=== PATIENT | female | born 1955 | race Hispanic/Latino ===

== ENCOUNTER 2020-06-08 08:15 | Emergency (ER) | payer OTHER ==
[2020-06-08 08:26] VITALS: BP 132/63
[2020-06-08] MEDS ORDERED: traMADol 50 MG TAB PO ONE (09:03)
--- NOTE | 2020-06-08 09:03 | Emergency Department Report ---
ED Extremity Problem HPI - General Chief complaint: Extremity Problem,Nontraumatic Stated complaint: RT FOOT PAIN Time Seen by Provider: 06/08/20 08:44 Source: patient Mode of arrival: Ambulatory Limitations: No Limitations - History of Present Illness Initial comments: 64-year-old female presents to the emergency room complaining of right foot pain. Patient states this is her gout flareup. She denies any recent falls or injuries. She has a history of gout and takes allopurinol 100 mg daily. Patient states yesterday her right lateral foot started hurting and she is not having any relief. She appears to be in no acute distress patient has a past medical history of thyroid disease high blood pressure and hyperlipidemia. MD Complaint: joint paint Onset/Timin -: Sudden, days(s) Location: right, other (foot) -: No myalgia, No fever, No associated dyspnea, No associated chest pain Radiation: none Severity scale (0 -10): 6 Quality: aching Consistency: constant Improves with: nothing Worsens with: weight bearing Associated Symptoms: denies other symptoms - Related Data Previous Rx's Medication Instructions Recorded Last Taken Type predniSONE [Deltasone] 40 mg PO QDAY 5 Days #10 tab 06/08/20 Unknown Rx Allergies Allergy/AdvReac Type Severity Reaction Status Date / Time aspirin AdvReac Unknown Verified 06/08/20 08:21 ED Review of Systems ROS: Stated complaint: RT FOOT PAIN Other details as noted in HPI Comment: All other systems reviewed and negative Constitutional: no symptoms reported. denies: chills, fever Eyes: denies: eye pain, eye discharge, vision change ENT: denies: ear pain, throat pain, dental pain, hearing loss Cardiovascular: denies: chest pain, palpitations, edema Endocrine: no symptoms reported Gastrointestinal: denies: abdominal pain Musculoskeletal: denies: back pain, joint swelling Skin: denies: change in color Neurological: denies: headache Psychiatric: denies: anxiety ED Past Medical Hx - Past Medical History Previous Medical History?: Yes Hx Hypertension: Yes Hx Renal Disease: Yes (she reports CKD 3) Additional medical history: gout - Surgical History Past Surgical History?: No - Social History Smoking Status: Never Smoker Substance Use Type: None - Medications Home Medications: Home Medications Medication Instructions Recorded Confirmed Last Taken Type predniSONE [Deltasone] 40 mg PO QDAY 5 Days #10 tab 06/08/20 Unknown Rx ED Physical Exam - General Limitations: No Limitations General appearance: alert, in no apparent distress - Head Head exam: Present: atraumatic - Eye Eye exam: Present: normal appearance - ENT ENT exam: Present: normal exam - Neck Neck exam: Present: normal inspection, full ROM - Cardiovascular Cardiovascular Exam: Present: regular rate, normal heart sounds - Extremities Exam Extremities exam: Present: normal inspection, tenderness, other (Lateral light right foot there is no redness there is no apparent swelling the skin is intact patient reports tenderness with palpation 2+ DP pulse) - Back Exam Back exam: Present: normal inspection - Neurological Exam Neurological exam: Present: alert, oriented X3 - Psychiatric Psychiatric exam: Present: normal affect - Skin Skin exam: Present: warm, dry, intact, normal color ED Course Vital Signs 06/08/20 08:21 Temperature 98.3 F Pulse Rate 75 Respiratory 18 Rate Blood Pressure 132/63 O2 Sat by Pulse 97 Oximetry ED Medical Decision Making - Medical Decision Making 64-year-old female with a past medical history of hypertension thyroid disease hyperlipidemia and CKD 3 and gout. Patient presents to the ER today complaining of right foot pain which started yesterday this is the usual pain that is associated with her gout. She denies any recent falls or trauma on examination there is no sign of redness there is no swelling there is tenderness with palpation to her her skin is intact and she has good DP pulses moving her toes freely. Plan to treat patient with steroids daily x5 days she is to continue with allopurinol daily. Patient also has a follow-up appointment already scheduled with her PCP on Wednesday. Critical Care Time: No Critical care attestation.: If time is entered above; I have spent that time in minutes in the direct care of this critically ill patient, excluding procedure time. ED Disposition Clinical Impression: Gout attack Qualifiers: Gout site: foot Gout etiology: unspecified cause Laterality: right Qualified Code(s): M10.9 - Gout, unspecified Disposition: TO HOME OR SELFCARE Is pt being admited?: No Does the pt Need Aspirin: No Condition: Stable Instructions: Low-Purine Eating Plan Additional Instructions: Drink plenty fluids continue to take your allopurinol daily take prednisone 40 mg once a day also it is okay to take as needed Tylenol as needed. Follow-up with your primary care doctor. Return to the emergency room if you develop worsening symptoms such as worsening pain redness swelling or inability to walk Prescriptions: predniSONE [Deltasone] 40 mg PO QDAY 5 Days #10 tab Referrals: SURENDRA JOSHI [Other] - 3-5 Days Time of Disposition: 09:09
== END 2020-06-08 09:27 | disposition home or self-care (01) ==
LOC: ED 08:15
DX: M10.9 Gout, unspecified (principal); I10 Essential (primary) hypertension; Z79.899 Other long term (current) drug therapy; Z88.8 Allergy status to other drugs, medicaments and biological substances
CPT/HCPCS: 99282